=== PATIENT | male | born 1985 | race Caucasian/White ===

== ENCOUNTER 2017-03-29 00:10 | Emergency (ER) | payer SELFPAY ==
[~2017-03-29] VITALS: Ht 180.3 cm; Wt 112.3 kg
[~2017-03-29 00:10] MED LIST: AUGMENTIN875 MG PO; BACTRIM,SEPT1 TABLET PO; HYCODAN SYRUP480 ML PO; KEFLEX500 MG PO; MOTRIN800 MG PO; NAPROSYN500 MG PO; PERCOCET 5/31 TABLET PO; PREDNISONE20 MG PO; VENTOLIN HFA18 GM IH; VICODIN 5-3001 EACH PO; VICODIN,LORT1 TABLET PO
[2017-03-29] MEDS ORDERED: PERCOCET 5/31 TABLET PO (01:30)
[2017-03-29 02:07] VITALS: BP 140/88
== END 2017-03-29 02:08 | disposition home or self-care (01) ==
LOC: EME 00:10
PROC: 0RSKXZZ Reposition Left Shoulder Joint, External Approach (ICD-10-PCS; principal; 2017-03-29)
DX: S43.005A Unspecified dislocation of left shoulder joint, initial encounter (principal); W18.30XA Fall on same level, unspecified, initial encounter; Y92.89 Other specified places as the place of occurrence of the external cause; F17.200 Nicotine dependence, unspecified, uncomplicated; Z88.6 Allergy status to analgesic agent
CPT/HCPCS: 73030; 99281; 99284; J2270; J2405; S0020